=== PATIENT | female | born 1995 | race Hispanic/Latino ===

== ENCOUNTER 2017-10-29 13:50 | Emergency (ER) | payer OTHER ==
--- NOTE | 2017-10-29 15:04 | EDM.PDOC ---
ED HPI GENERAL MEDICAL PROBLEM - General Chief Complaint: ENT Problem Stated Complaint: SORE THROAT Time Seen by Provider: 10/29/17 14:07 Source of Information: Reports: Patient, RN Notes Reviewed - History of Present Illness INITIAL COMMENTS - FREE TEXT/NARRATIVE: 22 year old female with sore throat, severe 4-5 days ago, now starting to get better. chills, no definite fever. Was very pain ful to swallow. When she sent her mother a photo mother insisted she have it evaluated. - Related Data Allergies Allergy/AdvReac Type Severity Reaction Status Date / Time acetaminophen Allergy Itching Verified 10/29/17 14:04 Home Meds: Home Meds Calcium Carbonate [Calcium] 500 mg PO DAILY 10/29/17 [History] Penicillin V Potassium [IJP: Penicillin V Potassium] 500 mg PO .EVERY 8 HOURS # 20 tab 10/29/17 [Rx] Past Medical History Respiratory History: Reports: Asthma, Bronchitis, Recurrent - Past Surgical History HEENT Surgical History: Reports: Oral Surgery Social & Family History - Tobacco Use Smoking Status *Q: Never Smoker - Caffeine Use Caffeine Use: Reports: Coffee, Soda - Recreational Drug Use Recreational Drug Use: No ED ROS ENT - Review of Systems Review Of Systems: See Below Constitutional: Reports: Chills HEENT: Reports: Throat Pain. Denies: Rhinitis, Sinus Problem Respiratory: Denies: Shortness of Breath, Cough Cardiovascular: Denies: Chest Pain GI/Abdominal: Denies: Abdominal Pain, Nausea, Vomiting Musculoskeletal: Reports: No Symptoms Skin: Reports: No Symptoms. Denies: Rash Neurological: Reports: No Symptoms ED EXAM, ENT - Physical Exam Exam: See Below General Appearance: Alert, No Apparent Distress Eye Exam: Bilateral Eye: PERRL Ears: Normal External Exam, Normal Canal, Normal TMs Nose: Normal Inspection Mouth/Throat: Tonsillar Erythema, Tonsillar Exudates, Tonsillar Swelling Head: No: Facial Swelling Neck: Supple, Full Range of Motion. No: Lymphadenopathy (L), Lymphadenopathy (R ) Respiratory/Chest: No Respiratory Distress, Lungs Clear, Normal Breath Sounds Cardiovascular: Regular Rate, Rhythm Neurological: Alert, Oriented, No Motor/Sensory Deficits Skin: Warm, Dry, Normal Color, No Rash Course - Vital Signs Last Recorded V/S: Last Vital Signs Temp 98.3 F 10/29/17 14:01 Pulse 62 03/15/18 14:01 Resp 18 10/29/17 14:01 BP 121/72 10/29/17 14:01 Pulse Ox 99 10/29/17 14:01 Departure - Departure Time of Disposition: 15:00 Disposition: Home, Self-Care 01 Condition: Fair Clinical Impression: Tonsillitis - Discharge Information Prescriptions: Penicillin V Potassium [IJP: Penicillin V Potassium] 500 mg PO .EVERY 8 HOURS # 20 tab Instructions: Tonsillitis, [id number] Referrals: PCP,None [Primary Care Provider] - Forms: ED Department Discharge Additional Instructions: Pen VK antibiotic 500 mg 3 times daily for 1 week, tylenol or ibuprofen as needed for discomfort, drink plenty of fluids to maintain hydration
== END 2017-10-29 15:10 | disposition home or self-care (01) ==
LOC: JD.ED 13:50
DX: J03.90 Acute tonsillitis, unspecified (principal); Z88.8 Allergy status to other drugs, medicaments and biological substances; Z79.899 Other long term (current) drug therapy
CPT/HCPCS: 99283

== ENCOUNTER 2017-12-28 18:19 | Emergency (ER) | payer OTHER ==
[2017-12-28] MEDS ORDERED: Sodium Chloride 0.9% 10 ML Syringe FLUSH PRN (19:01)
--- NOTE | 2017-12-28 19:17 | EDM.PDOC ---
ED HPI GENERAL MEDICAL PROBLEM - General Chief Complaint: Gastrointestinal Problem Stated Complaint: DIARRHEA Time Seen by Provider: 12/28/17 18:52 Source of Information: Reports: Patient History Limitations: Reports: No Limitations - History of Present Illness INITIAL COMMENTS - FREE TEXT/NARRATIVE: Patient is a 22-year-old female presents ED complaining of right lower quadrant abdominal pain, diarrhea, dark stool, that has persisted for the past week. States she was evaluated at the walk-in clinic 3 days ago and was prescribed Cipro 500 mg twice a day for 3 days. At that time she started developing black stools. She did take one dose of Pepto-Bismol that day but none noted since. States the pain is constant with waxing and waning with movement and palpation. She still has her appendix. Has no history of ovarian cyst. She denies being . There is no nausea or vomiting, fever, poor appetite, dysuria, abnormal vaginal discharge, or any additional complaints. There has been no ingestion of bad or questional food or recent sick exposures. As of recent patient did travel to [place] on 17 December same day of onset of symptoms. She has no additional past medical history. Currently taking no medications. Alcohol use none. Recreational drug use none. Smoking history none. PCP here locally none. No surgical history. No NSAID use. Right Lower Abdominal Pain Score (Numeric/FACES): 5 - Related Data Allergies Allergy/AdvReac Type Severity Reaction Status Date / Time acetaminophen Allergy Itching Verified 12/28/17 18:33 Home Meds: Home Meds . [No Known Home Meds] 12/28/17 [History] Past Medical History - Past Health History Medical/Surgical History: Denies Medical/Surgical History Respiratory History: Reports: Asthma, Bronchitis, Recurrent - Past Surgical History HEENT Surgical History: Reports: Oral Surgery Social & Family History - Family History Family Medical History: Noncontributory - Tobacco Use Smoking Status *Q: Never Smoker - Caffeine Use Caffeine Use: Reports: Coffee, Soda - Recreational Drug Use Recreational Drug Use: No ED ROS GENERAL - Review of Systems Review Of Systems: See Below Constitutional: Reports: No Symptoms HEENT: Reports: No Symptoms Respiratory: Reports: No Symptoms Cardiovascular: Reports: No Symptoms Endocrine: Reports: No Symptoms GI/Abdominal: Reports: Abdominal Pain (Right lower quadrant), Black Stool, Diarrhea, Flatus (Increased), Melena. Denies: Bloody Stool, Constipation ( History of), Decreased Appetite, Hematemesis, Hematochezia, Nausea, Stool Incontinence, Vomiting : Reports: No Symptoms Musculoskeletal: Reports: No Symptoms Skin: Reports: No Symptoms Neurological: Reports: No Symptoms ED EXAM, GI/ABD - Physical Exam Exam: See Below Exam Limited By: No Limitations General Appearance: Alert, WD/WN, No Apparent Distress Ears: Hearing Grossly Normal Nose: Normal Inspection Throat/Mouth: Normal Inspection, Normal Oropharynx, Normal Voice, No Airway Compromise Neck: Normal Inspection, Supple Respiratory/Chest: No Respiratory Distress, Lungs Clear, Normal Breath Sounds, No Accessory Muscle Use Cardiovascular: Normal Peripheral Pulses, Regular Rate, Rhythm, No Murmur GI/Abdominal Exam: Normal Bowel Sounds, Soft, No Organomegaly, No Distention, Tender (Right lower quadrant McBurney's point. Negative Espinoza sign.) (Female) Exam: Deferred Rectal (Female) Exam: Other (Female nursing staff will obtain stool Hemoccult test.). No: Black Stool, Bloody Stool, Heme - Stool (No stool to sample) Back Exam: Normal Inspection Neurological: Alert, Oriented, CN II-XII Intact, No Motor/Sensory Deficits Psychiatric: Normal Affect, Normal Mood Skin Exam: Warm, Dry, Intact, Normal Color, No Rash Course - Vital Signs Last Recorded V/S: Last Vital Signs Temp 98.7 F 12/28/17 18:29 Pulse 90 12/28/17 18:29 Resp 16 12/28/17 18:29 BP 119/82 12/28/17 18:29 Pulse Ox 98 12/28/17 18:29 - Orders/Labs/Meds Labs: Laboratory Tests 12/28/17 12/28/17 Range/Units 19:15 19:15 WBC 6.29 (3.98-10.04) K/mm3 RBC 5.04 (3.98-5.22) M/mm3 Hgb 15.3 (11.2-15.7) gm/L Hct 45.1 H (34.1-44.9) % MCV 89.5 (79.4-94.8) fl MCH 30.4 (25.6-32.2) pg MCHC 33.9 (32.2-35.5) g/dl RDW Std Deviation 39.7 (36.4-46.3) fL Plt Count 349 (182-369) K/mm3 MPV 9.0 L (9.4-12.3) fl Neutrophils % (Manual) 47 (40-60) % Band Neutrophils % 0 (0-10) % Lymphocytes % (Manual) 43 H (20-40) % Atypical Lymphs % 0 % Monocytes % (Manual) 3 (2-10) % Eosinophils % (Manual) 6 H (0.7-5.8) % Basophils % (Manual) 1 (0.1-1.2) Platelet Estimate Adequate Plt Morphology Comment Normal RBC Morph Comment Normal Sodium 138 (136-145) mEq/L Potassium 3.6 (3.5-5.1) mEq/L Chloride 102 (98-107) mEq/L Carbon Dioxide 23 (21-32) mEq/L Anion Gap 16.6 H (5-15) BUN 19 H (7-18) mg/dL Creatinine 1.0 (0.55-1.02) mg/dL Est Cr Clr Drug Dosing 69.20 mL/min Estimated GFR (MDRD) > 60 (>60) mL/min BUN/Creatinine Ratio 19.0 H (14-18) Glucose 81 (74-106) mg/dL Calcium 9.5 (8.5-10.1) mg/dL Total Bilirubin 0.3 (0.2-1.0) mg/dL AST 16 (15-37) U/L ALT 22 (14-59) U/L Alkaline Phosphatase 54 (46-116) U/L C-Reactive Protein < 0.2 (<1.0) mg/dL Total Protein 8.7 H (6.4-8.2) g/dl Albumin 4.7 (3.4-5.0) g/dl Globulin 4.0 gm/dL Albumin/Globulin Ratio 1.2 (1-2) Meds: Medications Discontinued Medications Generic Name Dose Route Start Last Admin Trade Name Freq PRN Reason Stop Dose Admin Sodium Chloride 10 ml 12/28/17 19:01 12/28/17 20:28 Saline Flush FLUSH 10 ml ASDIRECTED PRN Administration Keep Vein Open - Re-Assessments/Exams Free Text/Narrative Re-Assessment/Exam: Patient is tender along [place] Pt concerning for appendicitis. IV will established. Initial labs and studies include CBC, chem 14, CRP, UA, stool wbc's, x-ray of the abdomen 2 view, and fecal Hemoccult test. 12/28/17 21:14 X-ray of the abdomen revealed increased stool pattern throughout the right hemicolon. Nonspecific air pattern. Labs reviewed: White blood cell count 6.29, bili count 349, no neutrophilia and/ or left shift. Lymphocyte percentage is mildly elevated. Sodium 138, potassium 3.6, AG 16.6, BUN 19, creatinine 1.0, and CRP less than 0.2. Fecal hemoccult test was negative for blood. UA and hCG has not been obtained. Discussed results of the labs and x-ray with the patient. She is hungry wishing to be discharged home. I have instructed her that I do not have a clear etiology to why she is having pain to the right lower quadrant. This may be related to constipation, appendicitis, and/or possible ovarian cyst. Suspect low risk for appendicitis since she has an appetite and ambulates with no pain. In addition no stool sample has been provided thus unable to confirm if blood is present and also run additional stool labs. I have instructed her she may have a upper GI bleed of unclear etiology. Patient does not want to wait around for additional testing and is wishing to be discharged home. Per nursing staff patient ripped out her own IV. I have provided outpatient orders for stool studies. I have instructed her to establish care with a primary care provider for additional evaluation. She was instructed to call tomorrow for appointment to be seen this week. She had no additional questions or concerns. The patient remained hemodynamically stable while under my care in the E.D. I discussed the concerning symptoms for which to return to the E.D. with the patient/family. The patient/family verbalized understanding. All questions were answered. Departure - Departure Time of Disposition: 21:37 Disposition: Home, Self-Care 01 Condition: Good Clinical Impression: Right lower quadrant abdominal pain, Black stool Diarrhea Qualifiers: Diarrhea type: unspecified type Qualified Code(s): R19.7 - Diarrhea, unspecified - Discharge Information Instructions: Diarrhea, Adult, Abdominal Pain, Adult Referrals: Justin Dey [Physician] - Forms: ED Department Discharge, ED Return to Work/School Form Additional Instructions: Do not have clear etiology to why you hare having pain to the right lower quadrant and having black diarrhea. This may related to appendicitis, constipation, and/or ovarian cyst. X-ray of the abdomen did show increased stool pattern within the right hemicolon with nonspecific air pattern. Black stool maybe associated with GI bleed. Again this was not diagnosed since no stool within the rectal vault. No stool sample was provided. No UA sample was provided. I suggest establishing medical care with a primary care provider at the [facility] in [place] to be evaluated this week or first part of next week. Outpatient orders for stool studies have been placed. Please provide a stool sample when able. Return to the ED if you develop any new or worsening symptoms. Refrain from any NSAIDs such as ibuprofen and/or Aleve with concerns of blood in your stool. Refrain from dairy products, raw fruits/vesicles, spicy foods, fruit juices, and other aggravating foods or liquids.
--- NOTE | 2017-12-29 06:52 | CR ---
Abdomen: Supine and upright views of the abdomen were obtained. Bowel gas pattern appears normal. Calcifications are seen within the left pelvis most likely due to phleboliths. No soft tissue abnormality is seen. Bony structures are unremarkable. No free air is seen. Visualized lung bases are clear. Impression: 1. Incidental findings. Nothing acute is appreciated on two-view abdominal x-ray. Diagnostic code #2
== END 2017-12-28 21:58 | disposition home or self-care (01) ==
LOC: JD.ED 18:19
DX: R10.31 Right lower quadrant pain (principal); R19.7 Diarrhea, unspecified; Z88.6 Allergy status to analgesic agent
CPT/HCPCS: 36415; 74019; 80053; 82270; 85007; 85027; 86140; 99284; J7050